=== PATIENT | male | born 1995 | race Caucasian/White ===

== ENCOUNTER 2018-09-20 07:58 | Day surgery (SDC) | payer OTHER ==
[~2018-09-20 07:58] MED LIST: CEFAZOLIN 2 GM/50 ML (PMX) 50 ML IVPB
[2018-09-20] MEDS: SOD CHLORIDE 0.9% 1,000 ML IV (09:04)
[2018-09-20] MEDS ORDERED: HYDROmorphONE 1 MG/5 ML IV SYRINGE IV ×2 (09:30)
[2018-09-20] MEDS ORDERED: PROPOFOL 20 ML (09:32)
[2018-09-20] MEDS ORDERED: ROCURONIUM 50 MG INJ (09:32)
[2018-09-20] MEDS ORDERED: MIDAZOLAM 1 MG/ML 2 ML INJ (09:32)
[2018-09-20] MEDS ORDERED: LIDOCAINE 2% (SDV) 5 ML INJ (09:32)
[2018-09-20] MEDS ORDERED: ROPIVACAINE 0.5 % 30 ML VIAL (09:39)
[2018-09-20] MEDS ORDERED: CEFAZOLIN 1 GM INJ (09:47)
[2018-09-20] MEDS ORDERED: ONDANSETRON 4 MG INJ (09:48)
[2018-09-20] MEDS ORDERED: SUGAMMADEX SODIUM 200 MG/2 ML VIAL IV (10:18)
[2018-09-20] MEDS ORDERED: DEXAMETHASONE 4 MG/ML 5 ML INJ (10:33)
[2018-09-20] MEDS ORDERED: HYDROCODONE/APAP (5/325) TAB PO (11:00)
[2018-09-20] MEDS: HYDROmorphONE 1 MG/5 ML IV SYRINGE IV (11:02)
== END 2018-09-20 12:05 | disposition home or self-care (01) ==
LOC: SDS 07:58
DX: K80.10 Calculus of gallbladder with chronic cholecystitis without obstruction (principal)
CPT/HCPCS: 47562; 88304